=== PATIENT | male | born 1960 | race Caucasian/White ===

== ENCOUNTER 2022-07-09 00:36 | Outpatient (CLI) | payer MEDICAID, SELFPAY ==
--- NOTE | 2022-07-09 12:16 | DI.CT_ITS ---
Exam(s) CT CHEST WO EXAM: CT CHEST WO CLINICAL HISTORY: f/u ground glass infiltrates,ABNL CT,R93.89. TECHNIQUE: Multi planar reconstructions were performed. CONTRAST MATERIAL: None COMPARISON: [place] [id number] from 11/30/2021 performed [facility] DX Chest Portable 1 View [id number] from 12/21/2021 FINDINGS: CHEST: LUNGS: The previously present ground-glass infiltrate in the left upper lobe has completely resolved. Both lung chung are presently clear. No new areas of ground-glass infiltrate nor pleural effusion s. No other infiltrates. There are no significant focal findings in the trachea and mainstem bronch i. There is no bronchiectasis. MEDIASTINUM: There is no obvious hilar nor mediastinal adenopathy. Visualized thyroid unremarkable.No obvious axillary adenopathy CARDIAC: Heart size is normal. There is no pericardial effusion.Moderate coronary artery calcificati on noted in the left coronary artery/LAD. VISUALIZED UPPER ABDOMEN:Hepatic steatosis noted. No adrenal masses. OSSEOUS: No significant osseous lesions.. IMPRESSION: 1. The previously present left upper lobe ground-glass and filtrate is completely resolved. Lungs ar e presently clear no infiltrates nor pleural effusions nor intrathoracic adenopathy. 2. Other incidental findings as above RADIATION DOSE DELIVERED: 588.83mGy.cm Total DLP DATA REPOSITORY: All CT scans at this facility are submitted to the National Radiology Data Registry (NRDR) Dose Index Registry (DIR) with the [employer] ([employer]). RADIATION OPTIMIZATION: All CT scans at this facility use at least one of these dose optimization te chniques: automated exposure control; mA and/or kV adjustment per patient size (includes targeted exa ms where dose is matched to clinical indication); or iterative reconstruction.
== END 2022-07-09 00:56 ==
LOC: DI 00:36
PROVIDERS: Visit Provider Student in an Organized Health Care Education/Training Program
DX: R93.89 Abnormal findings on diagnostic imaging of other specified body structures (principal)
CPT/HCPCS: 71250

== ENCOUNTER 2022-08-02 08:38 | Outpatient (CLI) | payer MEDICAID, SELFPAY ==
--- NOTE | 2022-08-02 08:30 | RT.EKG_ITS ---
APPROVED REPORT Exam: Resting ECG Reason for Exam: LONGF TERM MEDICATION USE Patient Location: O HR:62 bpm ECG Measurements Heart Rate 62 AXIS ME 156 P 74 QRSd 88 QRS 27 QT 451 T 48 QTc 458 Conclusion Sinus rhythm...normal P axis, V-rate 50- 99 Probable left atrial enlargement...P >50mS, <-0.10mV V1 Abnormal R-wave progression, early transition...QRS area>0 in V2
== END 2022-08-02 08:39 | disposition home or self-care (01) ==
PROVIDERS: Visit Provider Family Medicine
DX: R94.31 Abnormal electrocardiogram [ECG] [EKG] (principal); Z51.81 Encounter for therapeutic drug level monitoring
CPT/HCPCS: 93005; 93010

== ENCOUNTER 2022-10-18 05:11 | Emergency (ER) | payer MEDICAID, SELFPAY ==
[2022-10-18 05:22] VITALS: BP 130/66; PULSE 76; RESP 18; TEMP 36.7; O2SAT 94
--- NOTE | 2022-10-18 05:30 | RT.EKG_ITS ---
APPROVED REPORT Exam: Resting ECG Reason for Exam: AMS Patient Location: E HR:77 bpm ECG Measurements Heart Rate 77 AXIS SC 150 P 37 QRSd 102 QRS 6 QT 443 T 13 QTc 500 Conclusion Sinus rhythm...normal P axis, V-rate 60- 99 Probable left atrial enlargement...P >50mS, <-0.10mV V1 Diffuse bT wave flattening vs.07/29
--- NOTE | 2022-10-18 05:30 | DI.CT_ITS ---
Exam(s) CT HEAD WO EXAM: CT HEAD WO CLINICAL HISTORY: AMS. TECHNIQUE: Imaging Protocol: Axial computed tomography images with coronal and sagittal reformatted images were created and reviewed COMPARISON: No exams were available for comparison FINDINGS: Ventricles and Extra axial spaces: Normal in size and morphology for the patient's age. Hemorrhage: None. Cerebral parenchyma: Normal. Midline shift: None. Brainstem/Cerebellum: Normal. Calvarium: Normal. Visualized Paranasal sinuses/Mastoids: Clear. Soft Tissues: Unremarkable. IMPRESSION: No acute intracranial process. RADIATION DOSE DELIVERED: 1,384.63mGy.cm Total DLP DATA REPOSITORY: All CT scans at this facility are submitted to the National Radiology Data Registry (NRDR) Dose Index Registry (DIR) with the [employer] ([employer]). RADIATION OPTIMIZATION: All CT scans at this facility use at least one of these dose optimization te chniques: automated exposure control; mA and/or kV adjustment per patient size (includes targeted exa ms where dose is matched to clinical indication); or iterative reconstruction.
--- NOTE | 2022-10-18 05:30 | DI.RAD_ITS ---
Exam(s) XR PORTABLE CHEST AP EXAM: XR PORTABLE CHEST AP CLINICAL HISTORY: AMS TECHNIQUE: 2D digital imaging was performed. COMPARISON: DX Chest Portable 1 View [id number] from 12/21/2021 FINDINGS: Exam limited by lordotic positioning and poor pulmonary inflation. LUNGS: Grossly clear. No pleural abnormality seen. HEART: Normal size. AORTA: Normal diameter. BONES: Unremarkable for age. Soft tissues: Unremarkable. IMPRESSION: No acute findings. DATA REPOSITORY: RADIATION DOSE DELIVERED:
--- NOTE | 2022-10-18 05:44 | W.ED.GENAD ---
Discharge Plan Disposition Patient Disposition: Home Discharge Details Clinical Impression: Chronic low back pain, Alcohol abuse ED Provider: Jenni Tan Home Meds and New Rx's Prescriptions: Continued melatonin 10 mg capsule 20 mg PO HS Qty: 90 0RF albuterol sulfate 90 mcg/actuation HFA aerosol inhaler 2 puff inhalation Q4H PRN (Reason: wheezing) Qty: 8.5 12RF Rx Instructions: 2 puff(s) inhaled, Q4hr PRN PRN as needed for wheezing budesonide-formoterol [Symbicort] 160-4.5 mcg/actuation HFA aerosol inhaler 2 puff inhalation BID Qty: 10.2 12RF Rx Instructions: with adapter clotrimazole 1 % cream 1 applic topical BID Rx Instructions: 1 hank, TOP, BID, PRN PRN rash, as needed apply to legs levothyroxine 112 mcg tablet 224 mcg PO DAILY Rx Instructions: Oral, Daily, Before breakfast methadone 5 mg/5 mL solution 160 mg PO DAILY Rx Instructions: 170 mg, oral, daily, dosing per [facility] pregabalin 300 mg capsule 300 mg PO BID tamsulosin 0.4 mg capsule 0.4 mg PO QHS Discharge Instructions Instructions: Low Back Strain (ED), Abuse of Alcohol (ED) Additional Instructions: Patient stopped drinking years 3 beers per day with a history of hepatitis C. Go to [facility] now to get your methadone for your back pain. Return to ED for any questions or concerns. Discharge Data Discharge Date/Time-TO BE ENTERED AT DEPARTURE: 10/18/22 07:45 Medical Decision Making Patient is sleeping comfortably in his room. I am now convinced that his mumbling earlier was just him falling asleep. He is doing this now and when I gently shake him he wakes up and is coherent. He c/o of being very tired. He says he is camping with his son and does not need to speak with somebody from outreach and education social worker. He typically gets his methadone between 7 and 8:00 and wants to leave now to go home to get this. He says he will then walk to his camp and take a nap. Says he drinks about 3 beers per day and I suspect that his liver function tests are elevated from this in combination with his hepatitis C. Patient knows this is not good for him. He ambulated without trouble from the ED. Imaging Data Radiologic Study: Radiologist's impression: CXR and CT head show NAD. Lab Data Lab results reviewed: Yes I reviewed the patient's lab results. Lab results narrative: Patient's CBC was normal. His CHEM panel is significant for a potassium of 3.2 and elevated liver function tests including AST of 131, ALT of 124, and alk phos of 152. The patient does have a history of hepatitis C. His TSH today is 5.9 with a normal free T4. I suspect he is noncompliant with his Synthroid medication. His albumin is 3.2. Alcohol level this morning is 1.07 and his urine drug screen is positive for methadone. ECG Data Attestation: I personally reviewed and interpreted this ECG (s) as follows: (Normal sinus rhythm at 75, diffuse T wave flattening versus prior EKG) HPI General Date/Time Provider Initiated Documentation: 10/18/22 05:36. HPI Narrative: This 62-year-old male patient presents with a chief complaint of acute on chronic lower back pain. Patient was brought in by EMS who state that he is homeless. EMS told me that neither they nor the police really knew this person. He is acting a little bizarrely and its not clear whether he is under the influence of drugs or alcohol. He does admit to me that he did have some alcohol earlier today. He also states that he gets his methadone from [facility]. At times he speaks clearly and answers questions and at other times he is mumbling and not making any sense. There is no evidence of head trauma. It is impossible to get a decent review of systems from him. Related Data Home Medications Medication Instructions Recorded Confirmed clotrimazole 1 % topical cream 1 applic topical BID 07/01/22 10/24/22 levothyroxine 112 mcg tablet 224 mcg PO DAILY 07/01/22 10/24/22 methadone 5 mg/5 mL oral solution 160 mg PO DAILY 07/01/22 10/24/22 pregabalin 300 mg capsule 300 mg PO BID 07/01/22 10/24/22 tamsulosin 0.4 mg capsule 0.4 mg PO QHS 07/01/22 10/24/22 albuterol sulfate 90 mcg/actuation 2 puff inhalation Q4H PRN wheezing 07/09/22 10/24/22 aerosol inhaler #8.5 grams budesonide-formoterol HFA 160 2 puff inhalation BID #10.2 grams 07/09/22 10/24/22 mcg-4.5 mcg/actuation aerosol inhaler (Symbicort) melatonin 10 mg capsule 20 mg PO HS #90 caps 07/09/22 10/24/22 Previous Rx's Medication Instructions Recorded albuterol sulfate 90 mcg/actuation 2 puff inhalation Q4H PRN wheezing 07/09/22 aerosol inhaler #8.5 grams budesonide-formoterol HFA 160 2 puff inhalation BID #10.2 grams 07/09/22 mcg-4.5 mcg/actuation aerosol inhaler (Symbicort) melatonin 10 mg capsule 20 mg PO HS #90 caps 07/09/22 Allergies Allergy/AdvReac Type Severity Reaction Status Date / Time Cephalosporins Allergy Unknown Skin Rash Verified 10/23/22 17:42 Sulfa Drugs Allergy Unknown Uncoded 10/23/22 17:42 General Stated Complaint: Nk/Back Pain GABRIELA: 4 Review of Systems Unobtainable due to mental condition Constitutional Constitutional: Reports as per HPI, Denies chills, Denies fever(s) and Denies headache(s) Eyes Eyes: Denies blurry vision and Reports other (no redness) ENT Ears, Nose, Mouth, and Throat: Denies dizziness, Denies otalgia, Denies headache(s), Denies nasal congestion, Denies nasal discharge, Denies neck pain and Denies odynophagia Cardiovascular Cardiovascular: Denies chest pain, Denies palpitations and Denies dyspnea Respiratory Respiratory: Denies cough and Denies dyspnea Gastrointestinal Gastrointestinal: Denies abdominal pain, Denies diarrhea, Denies nausea, Denies odynophagia and Denies vomiting Genitourinary Genitourinary: Denies difficulty urinating and Denies dysuria Musculoskeletal Musculoskeletal: Denies myalgias, Denies muscle weakness, Denies neck pain and Denies numbness Integumentary/Breasts Skin/Breast: Denies erythema and Denies rash Neurologic Neurologic: Denies dizziness, Denies headache(s) and Denies numbness Endocrine Endocrine: Denies palpitations PFSH All Active Problems (Updated 10/24/22 @ 03:13 by Yonatan Casanova DO) Chronic low back pain (Chronic) Alcohol abuse (Chronic) Suicidal ideation (Acute) Homeless (Acute) Emphysema lung (Acute) Nicotine dependence, cigarettes, uncomplicated (Acute) Abnormal CT of the chest (Acute) Hypothyroidism (Chronic) Medical History Asbestos exposure Hepatitis C IV drug abuse Opiate addiction Tobacco abuse Social History Smoking/Tobacco Use Status: Current every day Tobacco Type: cigarettes Smoking packs per day: 1 Smoking cigarettes per day: 20.0 Smoking risk assessment performed?: Yes Alcohol Intake: current Alcohol Intake frequency: 3 or more drinks per day Drug use: Daily Substance use type: marijuana and opiates Do you feel safe at home: No Do you feel safe in your relationship?: Yes Exam Const General: no acute distress, not in acute distress and disheveled (Unkept) Orientation: awake and other (intermittently mumbles and talks nonsensibly) Limitations: altered mental status HENMT Head: normocephalic and atraumatic Ears: external ears normal Mouth: oropharynx normal and moist mucous membranes Throat: posterior oropharynx normal Eyes Conjunctivae: conjunctivae normal Neck Neck: full ROM and supple Chest Chest: normal inspection of the chest Resp Effort & Inspection: normal respiratory effort Auscultation: clear to auscultation bilaterally Cardio Rate: regular rate Rhythm: regular rhythm Heart Sounds: no murmurs and no rubs GI Inspection: normal to inspection Palpation: soft, nontender and other (non distended) Auscultation: normal bowel sounds General: other (Perineal sensation intact) Back/Spine/Pelvis Back: No back tenderness and other (several minor scratches) Skin General skin exam: no rashes or lesions noted and other (pink, warm, dry) Neuro General: patient alert, patient awake and patient oriented x3 Speech: speech normal Motor: other (QUIJANO) Sensory Exam: no sensory deficits noted Extrem General: normal to inspection, full ROM, pedal edema present and other (Strength 5 out of 5 bilateral lower extremities with intact sensation) Psych Mental Status: mental status grossly normal Speech and Movement: speech and movement normal Affect: normal affect Course Vital Signs Vital signs: Vital Signs Temperature 36.7 C 10/18/22 05:22 Pulse 76 10/18/22 05:22 Respiratory Rate 18 10/18/22 05:22 Blood Pressure 130/66 10/18/22 05:22 Pulse Oximetry 94 10/18/22 05:22 Temperature 36.7 C 10/18/22 05:22 Temperature Source Tympanic 10/18/22 05:22 Pulse 76 10/18/22 05:22 Respiratory Rate 18 10/18/22 05:22 Respiratory Effort Normal 10/18/22 05:26 Blood Pressure 130/66 10/18/22 05:22 Blood Pressure Position Supine 10/18/22 05:22 Pulse Oximetry 94 10/18/22 05:22 Oxygen Delivery Method Room Air 10/18/22 05:22 Oxygen Flow Rate 0 10/18/22 05:22 Pain Level 9 10/18/22 05:22 PAWSS Have you Been Recently Intoxicated or Drunk Within the Last 30 days?: Yes Have you Ever Experienced Previous Episodes of Alcohol Withdrawal?: No Have you ever Experienced Withdrawal Seizures?: No Have you ever Experienced Delirium Tremens(DT)s?: No Have you ever undergone Alcohol Rehabilitation Treatment (i.e, inpt ot outpatient treatment programs)?: No Have you ever Experienced Blackouts?: No Have you ever Combined Alcohol with other Downers within the last 90 days?: Yes Have you ever Combined Alcohol with any other Substance of Abuse during the last 90 days?: Yes Positive Blood Alcohol level on Presentation? [PCS.BAL]: Unable to Obtain Evidence of Increased Autonomic Activity (i.e. HR>120, tremor, sweating, agitation, nausea)?: No Result: 3
[2022-10-18 05:57] LABS: BE (Venous) 7 mmol/L (-2-3); HCO3 (Venous) 32 mmol/L (23-28); HCT 40.1 % (40.0-50.0); HGB 13.8 g/dL (13.5-17.5); MCH 34.6 pg (27.0-33.0); MCHC 34.4 % (32.0-36.0); MCV 101 fL (80-95); MPV 10.1 fL (8.0-11.0); O2 Sat (Venous) 90 %; Platelet Count 171 10^3/uL (130-400); RBC 3.99 10^6/uL (4.36-5.78); RDW 14.3 % (11.8-14.1); RDW-SD 52.7 fL; TCO2 (Venous) 29 mmol/L (24-29); WBC 7.44 10^3/uL (4.4-10.8); pCO2 (Venous) 53 mmHg (41-51); pO2 (Venous) 56 mmHg
[2022-10-18 06:07] LABS: Bilirubin Negative (Negative); Blood Negative (Negative); Clarity Clear (Clear); Glucose Negative (Negative); Ketones Negative (Negative); Leukocyte Esterase Negative (Negative); Nitrite Negative (Negative); Specific Gravity 1.015 (1.005-1.025); Urobilinogen 0.2 mg/dL (Up to 0.2)
[2022-10-18 06:21] LABS: ALT 124 U/L (16-63); AST 131 U/L (15-37); Albumin 3.2 g/dL (3.4-5.0); Alkaline Phosphatase 152 U/L (46-116); Anion Gap 6.1 mmol/L (3-11); BUN 9 mg/dL (7-18); Bilirubin, Total 0.4 mg/dL (0.2-1.0); CO2 31.9 mmol/L (21.0-32.0); CREATININE 0.9 mg/dL (0.70-1.30); Calcium 8.4 mg/dL (8.5-10.1); Chloride 102 mmol/L (98-107); Estimated GFR 95.37 (mL/min/1.73m2); Glucose 108 mg/dL (74-106); Potassium 3.2 mmol/L (3.5-5.1); Sodium 140 mmol/L (136-145)
[2022-10-18 06:22] LABS: *AMPHETAMINES SCREEN URINE Negative (Negative); *BARBITURATES SCREEN URINE Negative (Negative); *BENZODIAZEPINES SCREEN URINE Negative (Negative); Cannabinoids THC Negative (Negative); Cocaine Screen,Urine Negative (Negative); METHADONE URINE SCREEN Positive (Negative); OPIATES URINE SCREEN Negative (Negative); Tricyclic Antidepressants Negative (Negative)
[2022-10-18 06:24] LABS: ETHANOL BLOOD 71.7 mg/dL (<10); Magnesium 2.1 mg/dL (1.8-2.4); TSH (W/Ref FT4) 5.88 uIU/mL (0.36-3.74)
[2022-10-18] MEDS: ACETAMINOPHEN 1,000 MG/100 ML BTL 400 MG IVPB (06:27)
[2022-10-18 06:28] VITALS: PULSE 71; RESP 10
[2022-10-18 06:30] VITALS: PULSE 72; RESP 11
[2022-10-18 06:40] LABS: FREE T4 0.77 ng/dL (0.76-1.46)
--- NOTE | 2022-10-18 07:04 | DI.VRAD_ITS ---
PROCEDURE INFORMATION: Exam: CT Head Without Contrast Exam date and time: 10/18/2022 6:21 AM Age: 62 years old Clinical indication: Altered mental status/memory loss; Confusion or disorientation TECHNIQUE: Imaging protocol: Computed tomography of the head without contrast. Radiation optimization: All CT scans at this facility use at least one of these dose optimization techniques: automated exposure control; mA and/or kV adjustment per patient size (includes targeted exams where dose is matched to clinical indication); or iterative reconstruction. COMPARISON: No relevant prior studies available. FINDINGS: Brain: No intracranial hemorrhage, mass effect, midline shift, or extra-axial collection. No acute territorial infarct. Sulci are normal in size for patient's age. Cerebral ventricles: Normal in size for patient's age. Paranasal sinuses: Visualized paranasal sinuses are well aerated. Mastoid air cells: The mastoid air cells are clear bilaterally. Bones/joints: Unremarkable. Soft tissues: Extracranial soft tissues are unremarkable. IMPRESSION: No acute intracranial abnormality. Dictated and Authenticated by: Lina Moore MD. Ordering:LADONNA Arteaga MD
--- NOTE | 2022-10-18 07:05 | DI.VRAD_ITS ---
PROCEDURE INFORMATION: Exam: XR Chest Exam date and time: 10/18/2022 6:09 AM Age: 62 years old Clinical indication: Other: AMS TECHNIQUE: Imaging protocol: Radiologic exam of the chest. Views: 1 view. COMPARISON: 1. CT CHEST WO 07/09/2022 12:15 PM 2. DX Chest Portable 1 View [id number] 12/21/2021 3:03 PM FINDINGS: Limitations: Lordotic projection. Lungs: The lungs are clear and well aerated bilaterally. There is no consolidation, infiltrate, or pulmonary edema. The pulmonary vasculature is normal in caliber. Pleural spaces: Unremarkable. No pleural effusion or pneumothorax. Heart/Mediastinum: Heart size is within normal limits when accounting for portable AP technique and lordotic projection. Cardiomediastinal contours are satisfactory. Bones/joints: Unremarkable. IMPRESSION: No active disease in the chest. Dictated and Authenticated by: Lina Moore MD. Ordering:LADONNA Arteaga MD
[2022-10-18 07:10] VITALS: PULSE 68; RESP 8; O2SAT 93
[2022-10-18 07:20] VITALS: PULSE 71; RESP 20; O2SAT 93
[2022-10-18] MEDS: Potassium Chloride 20 MEQ TABCR PO (07:22)
[2022-10-18 07:26] VITALS: BP 130/69; PULSE 70; PULSE 74; RESP 11
== END 2022-10-18 07:45 | disposition home or self-care (01) ==
PROVIDERS: Emergency Provider Emergency Medicine
DX: M54.59 Other low back pain (principal); F10.10 Alcohol abuse, uncomplicated; R41.82 Altered mental status, unspecified; G89.29 Other chronic pain; F11.20 Opioid dependence, uncomplicated; E03.9 Hypothyroidism, unspecified; Z59.00 Homelessness unspecified
CPT/HCPCS: 36416; 80053; 80307; 82805; 82947; 82962; 85027; 93005; 96374; 96375; 99285; 70450; 71045; 80320; 81003; 83735; 84439; 84443; 93010; 99283; J0131; J3490

== ENCOUNTER 2022-10-23 17:24 | Emergency (ER) | payer MEDICAID, SELFPAY ==
[2022-10-23 17:41] VITALS: BP 103/70; PULSE 68; RESP 18; TEMP 36.1; O2SAT 98
--- NOTE | 2022-10-23 20:00 | DI.RAD_ITS ---
Exam(s) XR CHEST 2V PA LATERAL EXAM: XR CHEST 2V PA LATERAL CLINICAL HISTORY: cough, ronchi, r/o pneumonia TECHNIQUE: 2D digital imaging was performed of the chest. Two images were obtained. PA and lateral views were obtained. COMPARISON: CR,XR XR PORTABLE CHEST AP from 10/18/2022 FINDINGS: MEDIASTINUM: Normal. HEART: Normal. PULMONARY VASCULATURE: Normal. LUNGS: No focal consolidating infiltrates. PLEURAL SPACE: No pleural effusion or pneumothorax. BONE:Within normal limits for the patient's age. OTHER FINDINGS:Normal. IMPRESSION: No acute pulmonary findings. DATA REPOSITORY: RADIATION DOSE DELIVERED:
--- NOTE | 2022-10-23 20:17 | W.ED.GENAD ---
Discharge Plan Discharge Details Chief Complaint: PsychEval Clinical Impression: Suicidal ideation Primary Care Provider: TeenaLocal ED Provider: Yonatan Casanova Home Meds and New Rx's Prescriptions: No Action melatonin 10 mg capsule 20 mg PO HS Qty: 90 0RF albuterol sulfate 90 mcg/actuation HFA aerosol inhaler 2 puff inhalation Q4H PRN (Reason: wheezing) Qty: 8.5 12RF Rx Instructions: 2 puff(s) inhaled, Q4hr PRN PRN as needed for wheezing budesonide-formoterol [Symbicort] 160-4.5 mcg/actuation HFA aerosol inhaler 2 puff inhalation BID Qty: 10.2 12RF Rx Instructions: with adapter clotrimazole 1 % cream 1 applic topical BID Rx Instructions: 1 hank, TOP, BID, PRN PRN rash, as needed apply to legs levothyroxine 112 mcg tablet 224 mcg PO DAILY Rx Instructions: Oral, Daily, Before breakfast methadone 5 mg/5 mL solution 170 mg PO DAILY Rx Instructions: 170 mg, oral, daily, dosing per [facility] pregabalin 300 mg capsule 300 mg PO BID tamsulosin 0.4 mg capsule 0.4 mg PO QHS Medical Decision Making This is a 62-year-old male with a past medical history of hepatitis C, previous alcohol abuse, depression with previous suicide attempt using medications in the past, which resulted in hospitalization at that time. Reactive airway disease secondary to tobacco use, chronic regular methadone use, who presents today for evaluation of depression and suicidality. Patient states that for the last 5 days he has been notably depressed. He wants to end his life and he would do this by taking a lot of pills. He suspects medication of choice would be fentanyl that he would use to end his life. He denies taking any medication recently to procure this result. He denies any significant alcohol use. He does not have any significant outpatient resources in regards to counseling aside for his methadone counselor. He is currently homeless. He denies any other complaints at this time. He is seeking help. He does admit to significant social stressors with his son, and he is no longer living with his son, which was one of the initial reasons why he came up to this area from [place]. No other modifying factors. Physicia; exam demonstrates a well-appearing but diminished affect male. Vital signs are stable. No signs of acute distress. Concern for depression. Right now the patient does not have an overt plan here in the ED to end his life, but he does have a plan that he would enact if he was back on the streets or outpatient. We will have mental health come and evaluate the patient. Will evaluate for any potential metabolic abnormality. Patient does have some rhonchi on exam, concern for potential community-acquired pneumonia. We will get an x-ray to monitor for this. We will monitor closely and reassess. 3:11 AM X-ray negative for any evidence of pneumonia. Potassium was low at 3.0, magnesium was 2.3. We have given 20 of IV potassium and 40 of oral potassium. Mild transaminitis. TSH elevated at 5, free T4 normal. Cocaine and methadone are positive on the UDS, alcohol elevated at 154. Patient's mental health advocate has come to evaluate him, however because his alcohol is elevated at 154 they will not evaluate now until it is 0. We will continue to monitor the patient tonight for reassessment in the morning by mental health. Patient will be signed out to my colleague Dr. Malcolm FINDINGS: Lungs: Chronic interstitial prominence. No consolidation. Pleural spaces: No pleural effusion. No pneumothorax. Heart/Mediastinum: No cardiomegaly. Bones/joints: Unremarkable. IMPRESSION: No acute findings. No focal consolidation Thank you for allowing us to participate in the care of your patient. Dictated and Authenticated by: Inocencio Dangelo MD 10/23/2022 9:25 PM Eastern Time ([place] & [place]) HPI General Date/Time Provider Initiated Documentation: 10/23/22 19:43. HPI Narrative: This is a 62-year-old male with a past medical history of hepatitis C, previous alcohol abuse, depression with previous suicide attempt using medications in the past, which resulted in hospitalization at that time. Reactive airway disease secondary to tobacco use, chronic regular methadone use, who presents today for evaluation of depression and suicidality. Patient states that for the last 5 days he has been notably depressed. He wants to end his life and he would do this by taking a lot of pills. He suspects medication of choice would be fentanyl that he would use to end his life. He denies taking any medication recently to procure this result. He denies any significant alcohol use. He does not have any significant outpatient resources in regards to counseling aside for his methadone counselor. He is currently homeless. He denies any other complaints at this time. He is seeking help. He does admit to significant social stressors with his son, and he is no longer living with his son, which was one of the initial reasons why he came up to this area from [place]. No other modifying factors. Related Data Home Medications Medication Instructions Recorded Confirmed clotrimazole 1 % topical cream 1 applic topical BID 07/01/22 07/09/22 levothyroxine 112 mcg tablet 224 mcg PO DAILY 07/01/22 07/09/22 methadone 5 mg/5 mL oral solution 170 mg PO DAILY 07/01/22 07/09/22 pregabalin 300 mg capsule 300 mg PO BID 07/01/22 07/09/22 tamsulosin 0.4 mg capsule 0.4 mg PO QHS 07/01/22 07/09/22 albuterol sulfate 90 mcg/actuation 2 puff inhalation Q4H PRN wheezing 07/09/22 07/09/22 aerosol inhaler #8.5 grams budesonide-formoterol HFA 160 2 puff inhalation BID #10.2 grams 07/09/22 07/09/22 mcg-4.5 mcg/actuation aerosol inhaler (Symbicort) melatonin 10 mg capsule 20 mg PO HS #90 caps 07/09/22 07/09/22 Previous Rx's Medication Instructions Recorded albuterol sulfate 90 mcg/actuation 2 puff inhalation Q4H PRN wheezing 07/09/22 aerosol inhaler #8.5 grams budesonide-formoterol HFA 160 2 puff inhalation BID #10.2 grams 07/09/22 mcg-4.5 mcg/actuation aerosol inhaler (Symbicort) melatonin 10 mg capsule 20 mg PO HS #90 caps 07/09/22 Allergies Allergy/AdvReac Type Severity Reaction Status Date / Time Cephalosporins Allergy Unknown Skin Rash Verified 10/23/22 17:42 Sulfa Drugs Allergy Unknown Uncoded 10/23/22 17:42 General Stated Complaint: PsychEval GABRIELA: 2 Review of Systems All systems reviewed & are unremarkable except as noted in HPI and below PFSH All Active Problems (Updated 10/24/22 @ 03:13 by Yonatan R Otis, DO) Chronic low back pain (Chronic) Alcohol abuse (Chronic) Suicidal ideation (Acute) Emphysema lung (Acute) Nicotine dependence, cigarettes, uncomplicated (Acute) Abnormal CT of the chest (Acute) Hypothyroidism (Chronic) Medical History Asbestos exposure Hepatitis C IV drug abuse Opiate addiction Tobacco abuse Social History Smoking/Tobacco Use Status: Current every day Tobacco Type: cigarettes Smoking packs per day: 1 Smoking cigarettes per day: 20.0 Smoking risk assessment performed?: Yes Alcohol Intake: current Alcohol Intake frequency: 3 or more drinks per day Drug use: Daily Substance use type: marijuana and opiates Do you feel safe at home: No Do you feel safe in your relationship?: Yes Exam Narrative Exam Narrative: 1.Const: Well-nourished, Well-developed, appearing stated age 2.Eyes: PERRL, no conjunctival injection, and symmetrical lids. 3.ENT: Atraumatic external nose and ears. Moist MM. Neck: Symmetric, trachea midline, No thyromegaly. 4.CVS: +S1/S2, No murmurs or gallops. Peripheral pulses 2+ and equal in all extremities. Brisk capillary refill in all extremities. 5.RESP: Unlabored respiratory effort. Mild rhonchi scattered throughout. No significant crackles. No wheezes. 6.GI: Soft, Nontender/Nondistended, No hepatosplenomegaly. No guarding or rebound. 7.MSK: Normocephalic/Atraumatic, Extremities w/o deformity or ttp No cyanosis or clubbing, Normal movement of all extremities 8.Skin: Warm, Dry. Small abrasion noted in the right forearm 9.Neuro: recreational resort manager II-XII grossly intact. Sensation grossly intact, no focal neurologic deficits. 10.Psych: (AAO) x3. Diminished mood and affect. Course Vital Signs Vital signs: Vital Signs Temperature 36.1 C L 10/23/22 17:41 Pulse 68 10/23/22 17:41 Respiratory Rate 18 10/23/22 17:41 Blood Pressure 103/70 10/23/22 17:41 Pulse Oximetry 98 10/23/22 17:41 Temperature 36.1 C L 05/20/23 17:41 Temperature Source Temporal Artery Scan 05/20/23 17:41 Pulse 68 10/23/22 17:41 Respiratory Rate 18 10/23/22 17:41 Respiratory Effort Normal, Non-Labored 10/23/22 17:41 Blood Pressure 103/70 10/23/22 17:41 Pulse Oximetry 98 10/23/22 17:41 Oxygen Delivery Method Room Air 10/23/22 17:41 Oxygen Flow Rate 0 10/23/22 17:41 PAWSS Have you Been Recently Intoxicated or Drunk Within the Last 30 days?: Yes Have you Ever Experienced Previous Episodes of Alcohol Withdrawal?: No Have you ever Experienced Withdrawal Seizures?: No Have you ever Experienced Delirium Tremens(DT)s?: No Have you ever undergone Alcohol Rehabilitation Treatment (i.e, inpt ot outpatient treatment programs)?: No Have you ever Experienced Blackouts?: No Have you ever Combined Alcohol with other Downers within the last 90 days?: No Have you ever Combined Alcohol with any other Substance of Abuse during the last 90 days?: No Positive Blood Alcohol level on Presentation? [PCS.BAL]: No Evidence of Increased Autonomic Activity (i.e. HR>120, tremor, sweating, agitation, nausea)?: No Result: 1
[2022-10-23 20:31] LABS: Abs Immature Grans 0.02 10^3/uL (0.0-0.06); Absolute Basophil Count 0.03 10^3/uL (0.0-0.2); Absolute Eosinophil Count 0.12 10^3/uL (0.0-0.7); Absolute Lymphocyte Count 2.34 10^3/uL (1.2-3.4); Absolute Monocyte Count 0.44 10^3/uL (0.1-0.8); Absolute Neutrophil Count 3.02 10^3/uL (1.2-6.7); Basophils % 0.5; HCT 43.5 % (40.0-50.0); HGB 14.4 g/dL (13.5-17.5); Immature Grans % 0.3; Lymphocytes % 39.2; MCHC 33.1 % (32.0-36.0); MCV 103 fL (80-95); MPV 10.6 fL (8.0-11.0); Monocytes % 7.4; Neutrophils % 50.6; Platelet Count 167 10^3/uL (130-400); RBC 4.24 10^6/uL (4.36-5.78); RDW 15.5 % (11.8-14.1); RDW-SD 56.7 fL; WBC 5.97 10^3/uL (4.4-10.8)
[2022-10-23 20:57] LABS: Salicylate < 2.8 mg/dL (<2.8)
[2022-10-23 20:59] LABS: Acetaminophen < 2 ug/mL (10-30)
[2022-10-23 21:02] LABS: ALT 131 U/L (16-63); AST 131 U/L (15-37); Albumin 3.4 g/dL (3.4-5.0); Alkaline Phosphatase 159 U/L (46-116); Anion Gap 10.5 mmol/L (3-11); BUN 13 mg/dL (7-18); Bilirubin, Total 0.4 mg/dL (0.2-1.0); CO2 29.5 mmol/L (21.0-32.0); CREATININE 1.1 mg/dL (0.70-1.30); Calcium 8.9 mg/dL (8.5-10.1); Chloride 100 mmol/L (98-107); ETHANOL BLOOD 154.5 mg/dL (<10); Estimated GFR 74.96 (mL/min/1.73m2); Glucose 106 mg/dL (74-106); Sodium 140 mmol/L (136-145); TSH (W/Ref FT4) 5.09 uIU/mL (0.36-3.74); Total Protein 7.6 g/dL (6.4-8.2)
[2022-10-23 21:19] LABS: FREE T4 0.93 ng/dL (0.76-1.46)
--- NOTE | 2022-10-23 21:26 | DI.VRAD_ITS ---
PROCEDURE INFORMATION: Exam: XR Chest Exam date and time: 10/23/2022 8:29 PM Age: 62 years old Clinical indication: Cough and other: Ronchi; Patient HX: Cough, ronchi, R/O pneumonia TECHNIQUE: Imaging protocol: Radiologic exam of the chest. Views: 2 views. COMPARISON: CR XR PORTABLE CHEST AP 10/18/2022 6:09 AM FINDINGS: Lungs: Chronic interstitial prominence. No consolidation. Pleural spaces: No pleural effusion. No pneumothorax. Heart/Mediastinum: No cardiomegaly. Bones/joints: Unremarkable. IMPRESSION: No acute findings. No focal consolidation Dictated and Authenticated by: Inocencio Dangelo MD. Ordering:GROVER Tam MD
[2022-10-23 22:37] LABS: Magnesium 2.3 mg/dL (1.8-2.4)
[2022-10-23] MEDS: Normal Saline 1,000 ML 1000 ML IV (22:59)
[2022-10-23] MEDS: POTASSIUM CHLORIDE 20 MEQ/100 ML BAG 50 MEQ IVPB (22:59)
[2022-10-23] MEDS: Potassium Chloride 20 MEQ TABCR 40 MEQ PO (22:59)
[2022-10-23 23:16] LABS: *AMPHETAMINES SCREEN URINE Negative (Negative); *BARBITURATES SCREEN URINE Negative (Negative); *BENZODIAZEPINES SCREEN URINE Negative (Negative); Cannabinoids THC Negative (Negative); Cocaine Screen,Urine Positive (Negative); METHADONE URINE SCREEN Positive (Negative); OPIATES URINE SCREEN Negative (Negative)
[2022-10-23 23:17] LABS: Tricyclic Antidepressants Negative (Negative)
[2022-10-23 23:42] LABS: COVID-19 PCR Negative (Negative); Influenza A PCR Negative (Negative); Influenza B PCR Negative (Negative); RSV PCR Negative (Negative)
[2022-10-23 23:43] LABS: Source Nasopharynx
--- NOTE | 2022-10-24 08:56 | ED.PROG_ITS ---
Date of service: 10/24/22 Time of Service: 08:00 Medical Decision Making 0800 --please see previous providers notes for initial presentation, exam and plan. Case endorsed to continue to monitor and follow-up with mental health after assessment this morning as they were unable to assess due to intoxication last night. 0855 --patient assessed by [facility] at bedside. Patient is endorsing suicidal ideation. He is voluntary. Plan is to seek inpatient psychiatric hospitalization. If patient plans to leave, plan will be for EE. Patient's regular daily medications ordered. He was given a take-home dose of methadone for today which nursing was able to obtain and he appears to have already taken it. We will hold on giving him his methadone dose for today and confirm dosing apart tomorrow and resume tomorrow. 2029 -- no acute events today. Case endorsed to oncoming provider to continue monitor while awaiting placement. Pt will need his methadone dose confirmed with [facility] tomorrow to confirm before ordering scheduled dosing. Sign Out Sign Out Data: Sign Out Comment: Suicidal, depressed, plans to end his life with fentanyl, mental health reassessment in the morning once patient is sober. Last updated by Yonatan Casanova DO at 10/24/22 03:29 Discharge Plan Discharge Details Chief Complaint: PsychEval Clinical Impression: Suicidal ideation, Homeless Primary Care Provider: Teena,Local ED Provider: Sumi Malcolm [place] Meds and New Rx's Prescriptions: No Action melatonin 10 mg capsule 20 mg PO HS Qty: 90 0RF albuterol sulfate 90 mcg/actuation HFA aerosol inhaler 2 puff inhalation Q4H PRN (Reason: wheezing) Qty: 8.5 12RF Rx Instructions: 2 puff(s) inhaled, Q4hr PRN PRN as needed for wheezing budesonide-formoterol [Symbicort] 160-4.5 mcg/actuation HFA aerosol inhaler 2 puff inhalation BID Qty: 10.2 12RF Rx Instructions: with adapter clotrimazole 1 % cream 1 applic topical BID Rx Instructions: 1 hank, TOP, BID, PRN PRN rash, as needed apply to legs levothyroxine 112 mcg tablet 224 mcg PO DAILY Rx Instructions: Oral, Daily, Before breakfast methadone 5 mg/5 mL solution 160 mg PO DAILY Rx Instructions: 170 mg, oral, daily, dosing per [facility] pregabalin 300 mg capsule 300 mg PO BID tamsulosin 0.4 mg capsule 0.4 mg PO QHS
[2022-10-24] MEDS: Budesonide/Formoterol 160/4.5 6 GM 60 PUFF INH IH ×2 (11:44→22:14)
[2022-10-24] MEDS: Pregabalin 100 MG CAP 300 MG PO ×2 (11:45→21:27)
--- NOTE | 2022-10-24 11:52 | NUR.NOTE ---
Nursing Note: patient requested methadone dose for the day. An empty bottle of methadone from the [facility] clinic was found empty while doing patient belongings inventory to be taken 10/24/22. Patient stated oh it was stolen do I have to wait till tomorrow? Patent verbalized he understands he will not be getting his dose today and after [facility] verifies dose he will be able to have his dose 10/25/22 per JOSE DANIEL
--- NOTE | 2022-10-24 16:20 | CMSP_ITS ---
Date of service: 10/24/22 Time of Service: 16:20 Care Management Safety Plan Status Status: Voluntary Reason for Wait Reason for Wait: Inpatient Admission Safety Plan Safety Plan: Safety plan has been established with patient, and care team, to adhere to patient goals, identify restrictions based on behavioral status, address nutrition, and determine allowed personal belongings, tools for hygiene and personal care. Determine level of activity including ambulation, level of supervision, visitors, and determine privileges based on behaviors and level of engagement by pt. SAFETY PLAN: 1. Will remain on suicide precautions. In Paper Clothes 2. Will remain in room under direct supervision of one-on-one staff at all times provided by [employer]; CARLOS ALBERTO, FAMILY MEMBER CARETAKER product support sales representative. 3. May have paper cups, plates, finger foods as well as a cardboard spoon with which to eat meals. 4. Follow [facility] Management of the Admitted Behavioral Health Patient policy. 5. Comfort bath system only, shower permitted with escort at RN discretion. 6. No personal belongings-soft items permitted at RN discretion. 7. Visitors-none at this time. 8. Activities: soft cart items approved per RN discretion. 9.? Bathroom privileges with escort in the ED, available in room without limitation on M/S. 10. Phone: contact limited to family at this time, via cordless phone at RN discretion. 11. Due to VOLUNTARY status, if patient wishes to leave [facility], staff will contact [facility] Crisis Screener ([phone]) and On-Call Maintenance Services Dispatcher ([phone]) as soon as possible. In the event of elopement, notify [facility] Police ([phone]). Patient is currently voluntarily at [facility] and seeking inpatient admission when a bed becomes available. [facility] Frontline Campus Coordinator will continue seeking plac ement. Please contact the Delivery Associate Maintenance Services Dispatcher ([phone]) and [facility] Campus Coordinator ([phone]) for any needed changes in the Safety Plan. Safety plan has been provided to interdepartmental care team.
[2022-10-24] MEDS: Tamsulosin 0.4 MG CAPCR PO (21:27)
[2022-10-24] MEDS: Melatonin 3 MG TAB 20 MG PO (21:27)
[2022-10-24] MEDS: Melatonin 3 MG TAB PO (21:27)
--- NOTE | 2022-10-25 01:19 | ED.PROG_ITS ---
Date of service: 10/25/22 Time of Service: 01:19 Medical Decision Making Patient stable throughout the night. Patient did have a scab on his left lassiter which she scraped off which cause bleeding. Surgicel was applied and was covered with Coban. Patient tolerated this well. Patient will be signed out to my colleague for disposition Sign Out Sign Out Data: Sign Out Comment: Suicidal, depressed, plans to end his life with fentanyl, mental health reassessment in the morning once patient is sober. Last updated by Yonatan Casanova DO at 10/24/22 03:29 Sign Out Comment: Voluntary. Medically cleared. No acute events today. Awaiting placement. Call [facility] tomorrow to confirm methadone dosing to order as scheduled. Last updated by Sumi Malcolm DO at 10/24/22 20:33 Discharge Plan Discharge Details Chief Complaint: PsychEval Clinical Impression: Suicidal ideation, Homeless Primary Care Provider: Teena,Local ED Provider: Yonatan Casanova Home Meds and New Rx's Prescriptions: No Action melatonin 10 mg capsule 20 mg PO HS Qty: 90 0RF albuterol sulfate 90 mcg/actuation HFA aerosol inhaler 2 puff inhalation Q4H PRN (Reason: wheezing) Qty: 8.5 12RF Rx Instructions: 2 puff(s) inhaled, Q4hr PRN PRN as needed for wheezing budesonide-formoterol [Symbicort] 160-4.5 mcg/actuation HFA aerosol inhaler 2 puff inhalation BID Qty: 10.2 12RF Rx Instructions: with adapter clotrimazole 1 % cream 1 applic topical BID Rx Instructions: 1 hank, TOP, BID, PRN PRN rash, as needed apply to legs levothyroxine 112 mcg tablet 224 mcg PO DAILY Rx Instructions: Oral, Daily, Before breakfast methadone 5 mg/5 mL solution 160 mg PO DAILY Rx Instructions: 170 mg, oral, daily, dosing per [facility] pregabalin 300 mg capsule 300 mg PO BID tamsulosin 0.4 mg capsule 0.4 mg PO QHS
--- NOTE | 2022-10-25 01:22 | NUR.NOTE ---
Nursing Note: Pt scratched his left lower left and opened scab. Pt bleeding, pt contacted sitter and RN. Pressure applied bleeding controlled with direct pressure. MD aware, dressing applied with coband.
[2022-10-25 07:34] VITALS: BP 147/88; PULSE 75; RESP 18; TEMP 36.8; O2SAT 94
[2022-10-25] MEDS: Pregabalin 100 MG CAP 300 MG PO ×2 (07:39→21:24)
[2022-10-25] MEDS: Levothyroxine 112 MCG TAB 224 MCG PO (08:08)
[2022-10-25] MEDS: Methadone Liquid 10 MG/ML 160 MG PO (08:08)
[2022-10-25] MEDS: Budesonide/Formoterol 160/4.5 6 GM 60 PUFF INH IH ×2 (08:09→21:23)
--- NOTE | 2022-10-25 09:24 | NUR.NOTE ---
Nursing Note: Per Dr. Dav SALMERON to remove IV at this time
--- NOTE | 2022-10-25 12:11 | NUR.NOTE ---
Nursing Note: Tor (son) [phone]
--- NOTE | 2022-10-25 13:12 | PDOC.MHPN2 ---
Date of service: 10/25/22 Time of Service: 09:51 Mental Health Emergency Note Release [facility] release signed:: Yes Reason for Visit SI WITH INTENT AND PLAN In the last 2 weeks has the pt presented for ES prior to today?: Unknown Client Information Client is: New Well Housed: No,status: Homeless Non Suicidal Self Injury Current: No History: No Safety Risk/Harm to Self or Others Current Ideation to Harm Self or Others: Yes to self. Intent: yes, has intent. Plan: yes,has a plan. History of suicide attempt: yes,history of suicide attempt reported. Details of previous suicide attempt: HX OF ATTEMPTS AND PRIOR HOSPITALIZATIONS Risk: Does risk to harm exist?: No Asssessment/Mental Status Appearance: Disheveled and Poor hygiene Attitude: Cooperative Behavior: Unremarkable Speech: Soft Affect: Normal and Cogruent with mood Mood: Sad and Depressed Thought process: Unremarkable Hallucinations: No and No evidence Delusions: No and No evidence Attention: Unremarkable Perception: Not impaired Orientation: Fully orientated Memory: Intact Insight: Fair Judgement: Poor Neurovegetative Symptoms Sleep: Decrease Appetitie: Decrease Interests: Decrease Energy: Decrease Libido: Not applicable Substance Use: Other Drug Issues: Dependence Do you use nicotine?: Yes Have you used substances in the last 7 days?: yes, Waiting on responses Additional Issues: Assaultive/Threatening Behavior: No Medical Concerns: No Client engaged in active self harm w/weapon: No Threatening to run away: No Child reported abuse/neglect: No Voluntarily presenting for services: Yes Domestic violence is a concern: No Extreme Psychosis or extreme behavior is present: No Impression The client is seeking voluntary inpatient hospitalization for SI. Resources Reosurces reviewed and given:: 988 Plan/Disposition Recommended Disposition: Hospitalization facilities contacted. Plan: The Client will wait in the ED until inpatient hospitalization can be secured Person reported agreement to plan: Yes Reports/communication Outcome discussed with: ED/Personnel
--- NOTE | 2022-10-25 13:56 | CMSP_ITS ---
Date of service: 10/25/22 Time of Service: 13:57 Care Management Safety Plan Status Status: Voluntary Reason for Wait Reason for Wait: Inpatient Admission Safety Plan Safety Plan: Safety plan has been established with patient, and care team, to adhere to patient goals, identify restrictions based on behavioral status, address nutrition, and determine allowed personal belongings, tools for hygiene and personal care. Determine level of activity including ambulation, level of supervision, visitors, and determine privileges based on behaviors and level of engagement by pt. SAFETY PLAN: 1. Will remain on suicide precautions. In Paper Clothes 2. Will remain in room under direct supervision of one-on-one staff at all times provided by [employer], PASSEMENTERIE WORKER, PROJECT ECONOMIST edi coordinator. 3. May have paper cups, plates, finger foods as well as a cardboard spoon with which to eat meals. 4. Follow [facility] Management of the Admitted Behavioral Health Patient policy. 5. Comfort bath system only, shower permitted with escort at RN discretion. 6. No personal belongings-soft items permitted at RN discretion. 7. Visitors-none at this time. 8. Activities: soft cart items, music tablet, television and other activities at RN discretion. 9.? Bathroom privileges with escort in the ED, available in room without limitation on M/S. 10. Phone: contact limited to family at this time, via [facility] hospital phone at RN discretion. 11. Due to VOLUNTARY status, if patient wishes to leave [facility], staff will contact [facility] Crisis Screener ([phone]) and On-Call Distance Education Coordinator ([phone]) as soon as possible. In the event of elopement, notify [facility] Police ([phone]). Patient is currently voluntarily at [facility] and seeking inpatient admission when a bed becomes available. [facility] Frontline [place] House Operator will continue seeking placement. Please contact the Calender Supervisor Distance Education Coordinator ([phone]) and [facility] [place] House Operator ([phone]) for any needed changes in the Safety Plan. Safety plan has been provided to interdepartmental care team.
--- NOTE | 2022-10-25 16:19 | CMPROGNOTE_ITS ---
Date of service: 10/25/22 Time of Service: 16:19 Care Management Progress Note Progress Note Text Progress Note Text: S/O: Tyra is pleasant and talkative when CM meets with him. He reports he has been psychiatrically hospitalized three times in the past and was in rehab approximately 6 months ago. He states his mood has worsened since his discharge from rehab and he is here at [facility] seeking inpatient treatment for mood stabilization. A: Tyra remains at [facility] awaiting a voluntary psychiatric placement. P: Tyra is assessed by Ariad[facility] Crisis Screener, today. Referrals are faxed by [facility], [facility], [facility], and [facility] for review. Currently there are no available beds. Tyra will remain at [facility] until a psych bed can be secured for him. CM will continue to follow.
--- NOTE | 2022-10-25 16:19 | PDOC.CMPRO ---
Date of service: 10/25/22 Time of Service: 16:19 Care Management Progress Note Progress Note Text Progress Note Text: S/O: Tyra is pleasant and talkative when CM meets with him. He reports he has been psychiatrically hospitalized three times in the past and was in rehab approximately 6 months ago. He states his mood has worsened since his discharge from rehab and he is here at [facility] seeking inpatient treatment for mood stabilization. A: Tyra remains at [facility] awaiting a voluntary psychiatric placement. P: Tyra is assessed by Ariadne [facility] Crisis Screener, today. Referrals are faxed by [facility] to [facility], [facility], [facility], and [facility] for review. Currently there are no available beds. Tyra will remain at [facility] until a psych bed can be secured for him. CM will continue to follow.
--- NOTE | 2022-10-25 18:40 | ED.PROG_ITS ---
Date of service: 10/25/22 Time of Service: 15:00 Medical Decision Making 1500 --please see previous providers notes for initial presentation, exam and plan. Case endorsed to continue to monitor while awaiting placement. 2300 --Case endorsed to oncoming provider to continue to monitor while awaiting placement. Medical Records Medical records reviewed: Yes I reviewed the patient's medical records. Sign Out Sign Out Data: Sign Out Comment: Suicidal, depressed, plans to end his life with fentanyl, mental health reassessment in the morning once patient is sober. Last updated by Yonatan Casanova DO at 10/24/22 03:29 Sign Out Comment: Voluntary. Medically cleared. No acute events today. Awaiting placement. Call [facility] tomorrow to confirm methadone dosing to order as scheduled. Last updated by Sumi Malcolm DO at 10/24/22 20:33 Sign Out Comment: Depressed, suicidal. No interventions needed throughout the night aside for a small abrasion on the left lower extremity which required Surgicel and pressure. Contacting [facility] this morning for methadone dose Last updated by Yonatan Casanova DO at 10/25/22 07:25 Sign Out Comment: Patient presents to the emergency department depressed and suicidal today he has been calm and no intervention to have to happen today. He probably will have a bed tomorrow in the morning but he will remain in the emergency department until he is placed. Last updated by Julian Calles MD at 10/25/22 15:12 Discharge Plan Discharge Details Chief Complaint: PsychEval Clinical Impression: Suicidal ideation, Homeless Primary Care Provider: Teena,Local ED Provider: Sumi Malcolm Home Meds and New Rx's Prescriptions: No Action melatonin 10 mg capsule 20 mg PO HS Qty: 90 0RF albuterol sulfate 90 mcg/actuation HFA aerosol inhaler 2 puff inhalation Q4H PRN (Reason: wheezing) Qty: 8.5 12RF Rx Instructions: 2 puff(s) inhaled, Q4hr PRN PRN as needed for wheezing budesonide-formoterol [Symbicort] 160-4.5 mcg/actuation HFA aerosol inhaler 2 puff inhalation BID Qty: 10.2 12RF Rx Instructions: with adapter clotrimazole 1 % cream 1 applic topical BID Rx Instructions: 1 hank, TOP, BID, PRN PRN rash, as needed apply to legs levothyroxine 112 mcg tablet 224 mcg PO DAILY Rx Instructions: Oral, Daily, Before breakfast methadone 5 mg/5 mL solution 160 mg PO DAILY Rx Instructions: 170 mg, oral, daily, dosing per [facility] pregabalin 300 mg capsule 300 mg PO BID tamsulosin 0.4 mg capsule 0.4 mg PO QHS
[2022-10-25] MEDS: Tamsulosin 0.4 MG CAPCR PO (21:23)
[2022-10-25] MEDS: Melatonin 3 MG TAB 20 MG PO (21:23)
--- NOTE | 2022-10-26 02:25 | NUR.NOTE ---
Nursing Note: provided patient with a sandwich and gingerale
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
[2022-10-26 06:33] VITALS: BP 161/88; PULSE 74; RESP 19; TEMP 36.4; O2SAT 95
[2022-10-26] MEDS: Levothyroxine 112 MCG TAB 224 MCG PO (06:38)
[2022-10-26] MEDS: Budesonide/Formoterol 160/4.5 6 GM 60 PUFF INH IH (08:10)
[2022-10-26] MEDS: Pregabalin 100 MG CAP 300 MG PO (08:10)
[2022-10-26] MEDS: Methadone Liquid 10 MG/ML 160 MG PO (08:10)
--- NOTE | 2022-10-26 09:49 | NUR.NOTE ---
Nursing Note: report given to [facility]
--- NOTE | 2022-10-26 10:02 | DI.RAD_ITS ---
Exam(s) XR FOOT RT COMPLETE EXAM: XR FOOT RT COMPLETE CLINICAL HISTORY: foot and heel pain. TECHNIQUE: 2D digital imaging was performed of the right foot. Three images were obtained. AP, obl ique and lateral views were obtained. COMPARISON: No exams were available for comparison FINDINGS: BONES: No acute fracture is present. No bony destructive lesion is seen. There is a deformity seen in the right fibula which is incompletely imaged and appears represent an old fracture deformity. Plea se correlate clinically. JOINTS: No dislocation present. The joint spaces are well maintained. SOFT TISSUE: Normal. IMPRESSION: No acute abnormality. DATA REPOSITORY: RADIATION DOSE DELIVERED:
--- NOTE | 2022-10-26 10:28 | PDOC.CMDIS ---
Date of service: 10/26/22 Time of Service: 10:28 LACE Index Scoring Tool Questions: Length of Stay (in days): 3
--- NOTE | 2022-10-26 10:29 | CMPROGNOTE_ITS ---
Date of service: 10/26/22 Time of Service: 10:29 Care Management Progress Note Progress Note Text Progress Note Text: DISPOSITION: Tyra is accepted by the [facility] for mood stabilization and substance use treatment. He will follow up with TAMAR, JOSE DANIEL and plan of care upon discharge from the [facility]. [employer] provide transportation to [place]. Status Status: Voluntary Reason for Wait: Inpatient Admission ([facility])
[2022-10-26 10:30] VITALS: BP 161/88; PULSE 74; RESP 19; TEMP 36.4; O2SAT 95
--- NOTE | 2022-10-26 10:48 | PDOC.MHPN2 ---
Date of service: 10/26/22 Time of Service: 08:10 Mental Health Emergency Note Release [facility] release signed:: Yes Reason for Visit SI In the last 2 weeks has the pt presented for ES prior to today?: Yes, presented at [facility] ED Non Suicidal Self Injury Current: No History: No Safety Risk/Harm to Self or Others Current Ideation to Harm Self or Others: Yes to self. Intent: yes, has intent. Plan: yes,has a plan. Risk: Does risk to harm exist?: No Asssessment/Mental Status Appearance: Disheveled Attitude: Cooperative Behavior: Unremarkable Speech: Soft Affect: Blunted Mood: Sad and Depressed Thought process: Unremarkable Hallucinations: No Delusions: No Attention: Unremarkable Perception: Not impaired Orientation: Fully orientated Memory: Intact Insight: Poor Judgement: Poor Neurovegetative Symptoms Sleep: Decrease Appetitie: Decrease Interests: Decrease Energy: Decrease Libido: Not applicable Substance Use: ETOH dependence Drug Issues: Dependence Do you use nicotine?: Yes Have you used substances in the last 7 days?: yes, Client plans to OD on fetanyl Additional Issues: Assaultive/Threatening Behavior: No Medical Concerns: No Client engaged in active self harm w/weapon: No Threatening to run away: No Child reported abuse/neglect: No Voluntarily presenting for services: Yes Domestic violence is a concern: No Extreme Psychosis or extreme behavior is present: No Resources Reosurc reviewed and given:: 988 and [facility] Plan/Disposition Recommended Disposition: Hospitalization facilities contacted. Plan: The Client will wait at [facility] until inpatient hospitalization can be secured Facilities contacted if Applicable [facility] Accepted, Pending review. Information Sent to Brian: Referral Reports/communication Outcome discussed with: ED/Personnel
== END 2022-10-26 10:47 ==
PROVIDERS: Student in an Organized Health Care Education/Training Program; Emergency Provider Emergency Medicine Emergency Medical Services
DX: F32.A Depression, unspecified (principal); R45.851 Suicidal ideations; E87.6 Hypokalemia; Z59.00 Homelessness unspecified; S80.812A Abrasion, left lower leg, initial encounter; X58.XXXA Exposure to other specified factors, initial encounter; F11.20 Opioid dependence, uncomplicated; Z91.51 Personal history of suicidal behavior; R05.1 Acute cough; M79.671 Pain in right foot
CPT/HCPCS: 36415; 80053; 80307; 87637; 96365; 96366; 99285; H0046; 71046; 73630; 80320; 80329; 83735; 84439; 84443; 85025; J3480